=== PATIENT | male | born 1980 | race Caucasian/White ===

== ENCOUNTER 2018-07-12 18:44 | Emergency (ER) | payer MEDICAID ==
[~2018-07-12] VITALS: Ht 170.2 cm; Wt 97.5 kg
[2018-07-12 18:44] VITALS: BP 163/113
--- NOTE | 2018-07-12 18:45 | NUR ---
Patient BIBA ACLS accompanied by [place] [employer], transferred to bed 5. RN evaluating patient at bedside.
--- NOTE | 2018-07-12 19:45 | NUR ---
RECEIVED REPORT FROM MEGHA ESPAÑA.
--- NOTE | 2018-07-12 19:45 | NUR ---
BIBA c/o chest pain after being arresting for stealing, pt in custody of [place] [employer], needs pre-book hx DM, meth abuse, IV heroin abuse PT HANDCUFFED TO RIGHT BED RAIL X 1. PT SLEEPING. TELLY MONITOR ON, IN PLACE. HOB ELEVATED. BED IN LOWEST POSITION. VSS. NO APPARENT STRESS AT THIS TIME.
--- NOTE | 2018-07-12 20:20 | NUR ---
EMT DOING EKG AT BEDSIDE.
--- NOTE | 2018-07-12 20:36 | NUR ---
Patient discharged with v/s stable. Written and verbal after care instructions given and explained. Patient verbalized understanding. Police escorted with steady gait. All questions addressed prior to discharge.
[2018-07-12 20:37] VITALS: BP 138/94
== END 2018-07-12 20:36 ==
LOC: MED 18:44
DX: R07.89 Other chest pain (principal); R06.02 Shortness of breath; J45.909 Unspecified asthma, uncomplicated; E11.9 Type 2 diabetes mellitus without complications; I10 Essential (primary) hypertension
CPT/HCPCS: 93005; 99283

== ENCOUNTER 2019-11-30 03:00 | Emergency (ER) | payer MEDICAID ==
[~2019-11-30] VITALS: Ht 170.2 cm; Wt 106.1 kg
[2019-11-30 03:05] VITALS: BP 136/91
--- NOTE | 2019-11-30 03:05 | NUR ---
PT AMBULATED TO BED #11
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
--- NOTE | 2019-11-30 03:24 | NUR ---
Dr. Godfrey examining patient.
[2019-11-30] MEDS ORDERED: AZITHROMYCIN 250 MG TAB PO ONE (03:30)
[2019-11-30] MEDS ORDERED: cefTRIAXone 250 MG in LIDOCAINE MPF 1% 0.9 ML IM ONE (03:30)
[2019-11-30] MEDS ORDERED: cefTRIAXone 250 MG VIAL ONE (03:34)
[2019-11-30] MEDS ORDERED: LIDOCAINE MPF 1% 5 ML ONE (03:35)
[2019-11-30 03:54] VITALS: BP 136/91
[2019-12-02 06:08] LABS: CHLAMYDIA TRACHOMATIS AMP DNA Negative (Negative)
== END 2019-11-30 03:54 | disposition home or self-care (01) ==
LOC: MED 03:00
DX: R30.0 Dysuria (principal); E11.9 Type 2 diabetes mellitus without complications; F17.210 Nicotine dependence, cigarettes, uncomplicated; I10 Essential (primary) hypertension; J45.909 Unspecified asthma, uncomplicated
CPT/HCPCS: 36415; 81002; 96372; 99283; J0696; J2001; 87491

== ENCOUNTER 2019-12-19 16:44 | Emergency (ER) | payer MEDICAID ==
[~2019-12-19] VITALS: Ht 170.2 cm; Wt 117.9 kg
[2019-12-19 16:53] VITALS: BP 141/78
[2019-12-19] MEDS: TETRACAINE HCL/PF 0.5% OPTH 4 ML BTL OP ONE (17:16)
[2019-12-19] MEDS: FLUORESCEIN OPTH STRIP 1 MG OP ONE (17:16)
[2019-12-19] MEDS ORDERED: TOMOMETER 1 DEV DEV MC ONE (17:19)
[2019-12-19 17:47] VITALS: BP 135/70
== END 2019-12-19 17:47 | disposition home or self-care (01) ==
LOC: MED 16:44
DX: S05.02XA Injury of conjunctiva and corneal abrasion without foreign body, left eye, initial encounter (principal); E11.9 Type 2 diabetes mellitus without complications; I10 Essential (primary) hypertension; J45.909 Unspecified asthma, uncomplicated; X58.XXXA Exposure to other specified factors, initial encounter; Y93.89 Activity, other specified; Y92.89 Other specified places as the place of occurrence of the external cause; Y99.8 Other external cause status
CPT/HCPCS: 99283

== ENCOUNTER 2020-10-08 03:33 | Emergency (ER) | payer MEDICAID ==
[~2020-10-08] VITALS: Ht 170.2 cm; Wt 117.5 kg
[2020-10-08 03:36] VITALS: BP 152/95
--- NOTE | 2020-10-08 03:36 | NUR ---
TO BED AMBULATORY
--- NOTE | 2020-10-08 03:51 | NUR ---
39 y.o male presents to the ED with High Blood sugar of 381 and high blood pressure. Patient reports not taking medication for 1 month and that is when his high BG has been kicking in. it is normally 400s. Patient reports frequent urination and possible yeast infection of the penis due to painful when the foreskin is pulled back. Reports FORTUNE, LUQ abdominal pain and Left shoulder pain that has been going on for a few days. 6/10 pain that feels like cramping. Has neuropathy. Homeless. PMH: DM, HTN, neuropathy, sleep apnea NKA
--- NOTE | 2020-10-08 04:01 | NUR ---
ERMD AT BEDSIDE FOR EXAMINATION OF THE PATIENT
[2020-10-08] MEDS ORDERED: NACL 0.9% 2,000 ML IV ONE (04:10)
[2020-10-08 04:56] LABS: BASOPHILS % (AUTO) 0.4 % (0.0-2.0); EOSINOPHILS # (AUTO) 0.2 K/uL (0-0.4); EOSINOPHILS % (AUTO) 2.9 % (0.0-4.0); HEMATOCRIT 44.6 % (36-52); HEMOGLOBIN 14.9 g/dL (12.0-18.0); LYMPHOCYTES # (AUTO) 2.5 K/uL (2.0-11.5); LYMPHOCYTES % (AUTO) 29.2 % (20.5-51.1); MEAN CORPUSCULAR HEMOGLOBIN 29 pg (27-31); MEAN CORPUSCULAR HGB CONC 34 g/dL (33-37); MONOCYTES # (AUTO) 0.6 K/uL (0.8-1.0); MONOCYTES % (AUTO) 7.4 % (1.7-9.3); NEUTROPHILS # (AUTO) 5.1 K/uL (1.8-7.7); NEUTROPHILS % (AUTO) 60.1 % (42.2-75.2); PLATELET COUNT (AUTO) 177 K/uL (140-450); RED BLOOD CELL COUNT(AUTO) 5.24 MIL/uL (4.20-6.10); RED CELL DISTRIBUTION WIDTH 12.9 % (11.6-13.7); WHITE BLOOD COUNT (AUTO) 8.5 K/uL (4.8-10.8)
[2020-10-08 05:10] LABS: ANION GAP 16.1 (8-16); CARBON DIOXIDE 28.2 mmol/L (21-32); CREATININE 0.9 mg/dL (0.6-1.3); POTASSIUM 4.3 mmol/L (3.5-5.1)
--- NOTE | 2020-10-08 05:22 | NUR ---
Patient appears to be resting comfortably in bed low fowlers. Respirations even and unlabored with a slight snore. Significant other at bedside. Safety measures in place. Will continue to monitor patient.
[2020-10-08 06:36] LABS: ALBUMIN 3.9 g/dL (3.4-5.0); BILIRUBIN,DIRECT 0.1 mg/dL (0.0-0.3); MAGNESIUM 1.9 mg/dL (1.8-2.4); TOTAL BILIRUBIN 0.3 mg/dL (0.0-1.0)
--- NOTE | 2020-10-08 06:47 | NUR ---
Patient appears to be resting comfortably in bed low fowlers. Vital signs within normal limits. Respirations even and unlabored with a slight snore. Safety measures in place. Will continue to monitor patient.
--- NOTE | 2020-10-08 06:48 | NUR ---
ERMD AT BEDSIDE FOR RE-EXAMINATION OF PATIENT AND SPEAKING ABOUT RESULTS.
--- NOTE | 2020-10-08 06:48 | NUR ---
Called for update on patient. Call for future updates. : Arleen #[phone]
[2020-10-08 06:53] LABS: ANION GAP 11.2 (8-16); CARBON DIOXIDE 25.7 mmol/L (21-32); CREATININE 0.8 mg/dL (0.6-1.3); POTASSIUM 3.9 mmol/L (3.5-5.1)
[2020-10-08] MEDS ORDERED: METF-1022 PO (06:56)
[2020-10-08] MEDS ORDERED: LISI10TA30 PO (06:56)
[2020-10-08] MEDS ORDERED: GLYB5TAB13 PO (06:57)
--- NOTE | 2020-10-08 07:00 | NUR ---
IV removed, catheter intact and site benign. Applied folded 4x4 gauze and tape to stop bleeding.
[2020-10-08 07:07] VITALS: BP 119/73
--- NOTE | 2020-10-08 07:07 | NUR ---
Patient discharged with v/s stable. Written and verbal after care instructions given and explained. Patient alert, oriented and verbalized understanding of instructions. Ambulatory with steady gait. All questions addressed prior to discharge. ID band removed. Patient advised to follow up with PMD. Rx of GLYBURIDE, LISINOPRIL, METFORMIN HCL given. Patient educated on indication of medication including possible reaction and side effects. Opportunity to ask questions provided and answered.
== END 2020-10-08 07:07 | disposition home or self-care (01) ==
LOC: MED 03:33
DX: E11.65 Type 2 diabetes mellitus with hyperglycemia (principal); I10 Essential (primary) hypertension; F15.90 Other stimulant use, unspecified, uncomplicated; F17.200 Nicotine dependence, unspecified, uncomplicated; J45.909 Unspecified asthma, uncomplicated; Z71.6 Tobacco abuse counseling; Z59.0 Homelessness; Z79.84 Long term (current) use of oral hypoglycemic drugs; Z79.899 Other long term (current) drug therapy
CPT/HCPCS: 36415; 80048; 80076; 81002; 82803; 83735; 84484; 85025; 96360; 99291; J7030

== ENCOUNTER 2020-10-31 01:10 | Emergency (ER) | payer MEDICAID ==
[~2020-10-31] VITALS: Ht 170.2 cm; Wt 104.3 kg
[~2020-10-31 01:10] MED LIST: GLYB5TAB13 PO; LISI10TA30 PO; METF-1022 PO
[2020-10-31 01:24] VITALS: BP 170/100
--- NOTE | 2020-10-31 01:24 | NUR ---
PATIENT AMBUALTED TO BED 8 WITH STEADY GAIT.
--- NOTE | 2020-10-31 01:33 | NUR ---
ERMD AT BEDSIDE FOR MEDICAL EVALUATION.
--- NOTE | 2020-10-31 01:39 | NUR ---
PATIENT BIB SELF FOR C/O HEADACHE X 1 WEEK. PER PATINET HEADACHE IS INTERMITTENT AND STARTS IN BACK OF HEAD AND RADIATES TO LEFT CHEEK, L EYE, AND LEFT TEETH AND HAS FELT THAT IT HAS GOTTEN WORSE. PATIENT STATES TOOK ASA FOR PAIN THIS MORNING WITH INEFFECTIVE RESULTS. 7/10 PAIN THAT FEELS LIKE THROBBING, PULSATION AND CONSTANTLY THERE. AAOX4. MEDHX: DM TYPE II, HTN, SLEEP APNEA, ASTHMA NKA
[2020-10-31] MEDS ORDERED: ACETAMINOPHEN EXTRA STRENGTH 500 MG TAB PO ONE (01:40)
[2020-10-31] MEDS ORDERED: diphenhydrAMINE 50 MG/ML VIAL IVP ONE (01:40)
[2020-10-31] MEDS ORDERED: PROCHLORPERAZINE 10 MG/2 ML VIAL IVP ONE (01:40)
[2020-10-31 02:26] LABS: ALBUMIN 4.1 g/dL (3.4-5.0); ANION GAP 11.2 (8-16); CREATININE 0.9 mg/dL (0.6-1.3); POTASSIUM 4.2 mmol/L (3.5-5.1); TOTAL BILIRUBIN 0.2 mg/dL (0.0-1.0)
--- NOTE | 2020-10-31 03:15 | NUR ---
called about updates on patient. mentioned, the needle stick and the blood sugar to relay to the doctor or see if we could do anything about it. ERMD made aware.
--- NOTE | 2020-10-31 03:16 | NUR ---
Patient appears to be resting comfortably in bed. Vital Signs within normal limits. Respirations even and unlabored. Safety measures in place, will continue to monitor
[2020-10-31 03:37] LABS: BASOPHILS % (AUTO) 0.3 % (0.0-2.0); EOSINOPHILS # (AUTO) 0.4 K/uL (0-0.4); EOSINOPHILS % (AUTO) 3.7 % (0.0-4.0); HEMATOCRIT 43.2 % (36-52); HEMOGLOBIN 14.4 g/dL (12.0-18.0); LYMPHOCYTES # (AUTO) 2.5 K/uL (2.0-11.5); LYMPHOCYTES % (AUTO) 25.3 % (20.5-51.1); MEAN CORPUSCULAR HEMOGLOBIN 29 pg (27-31); MEAN CORPUSCULAR HGB CONC 33 g/dL (33-37); MEAN CORPUSCULAR VOLUME 85.6 fL (80-94); MONOCYTES # (AUTO) 0.8 K/uL (0.8-1.0); MONOCYTES % (AUTO) 8.3 % (1.7-9.3); NEUTROPHILS # (AUTO) 6.2 K/uL (1.8-7.7); NEUTROPHILS % (AUTO) 62.4 % (42.2-75.2); PLATELET COUNT (AUTO) 201 K/uL (140-450); RED BLOOD CELL COUNT(AUTO) 5.05 MIL/uL (4.20-6.10); RED CELL DISTRIBUTION WIDTH 13.3 % (11.6-13.7)
--- NOTE | 2020-10-31 04:12 | NUR ---
Patient appears to be resting comfortably in bed. Vital Signs within normal limits. Respirations even and unlabored. Safety measures in place, will continue to monitor
--- NOTE | 2020-10-31 04:25 | NUR ---
Dr. Raza examining patient.
[2020-10-31] MEDS ORDERED: HEPATITIS B VACCINE PEDIATRIC 10 MCG/0.5 ML VIAL IMVAC ONE (04:40)
[2020-10-31] MEDS ORDERED: RALT400T PO (04:40)
[2020-10-31] MEDS ORDERED: HEPATITIS B IMMUNE GLOBULIN 0.5 ML SYR IM ONE (04:40)
[2020-10-31] MEDS ORDERED: TRU PO (04:40)
--- NOTE | 2020-10-31 05:15 | NUR ---
IV removed, catheter intact and site benign. Applied folded 4x4 gauze and tape to stop bleeding.
[2020-10-31 05:24] VITALS: BP 107/64
--- NOTE | 2020-10-31 05:24 | NUR ---
Patient discharged with v/s stable. Written and verbal after care instructions given and explained. Patient alert, oriented and verbalized understanding of instructions. Ambulatory with steady gait. All questions addressed prior to discharge. ID band removed. Patient advised to follow up with PMD. Rx of ISENTRESS AND TRUVADA 200MG-300MG TABLET given. Patient educated on indication of medication including possible reaction and side effects. Opportunity to ask questions provided and answered.
== END 2020-10-31 03:15 | disposition home or self-care (01) ==
LOC: MED 01:10
DX: R51.9 Headache, unspecified (principal); F12.10 Cannabis abuse, uncomplicated; W46.1XXA Contact with contaminated hypodermic needle, initial encounter; Y93.89 Activity, other specified; Y92.89 Other specified places as the place of occurrence of the external cause; Y99.8 Other external cause status
CPT/HCPCS: 36415; 70450; 80053; 85025; 86703; 90371; 90471; 90744; 96372; 96374; 96375; 99285; J0780; J1200

== ENCOUNTER 2021-04-15 13:32 | Emergency (ER) | payer MEDICAID ==
[~2021-04-15] VITALS: Ht 170.2 cm; Wt 108.4 kg
[~2021-04-15 13:32] MED LIST changes: +RALT400T PO; +TRU PO
[2021-04-15 13:47] VITALS: BP 151/99
[2021-04-15] MEDS ORDERED: buprenorphine HCL 2 MG sublingual tab SL ONE (14:30)
[2021-04-15] MEDS ORDERED: LISI-486 PO (14:32)
[2021-04-15] MEDS ORDERED: METF-1022 PO (14:32)
[2021-04-15] MEDS ORDERED: NAPR-54 PO (14:32)
[2021-04-15] MEDS ORDERED: GLYB-200 PO (14:32)
[2021-04-15] MEDS ORDERED: CEPH-588 PO (14:32)
[2021-04-15] MEDS ORDERED: KETOROLAC 30 MG/ML VIAL IM ONE (14:35)
[2021-04-15] MEDS ORDERED: BUPR1FIL2 SL (14:41)
--- NOTE | 2021-04-15 15:10 | NUR ---
40/M BIB SELF FOR C/O INGROWN TOENAIL TO LEFT BIG TOE, BIG TOE IS TENDER TO TOUCH NO BLEEDING OR BROKEN SKIN NOTED TO SITE. PATIENT ALSO STATES HE WAS RELEASED FROM [facility] UNEXPECTEDLY 2 DAYS AGO AND STATES HE WAS ON SUBOXONE FOR HEROIN WITHDRAWS. STATES HE NEEDS A REFILL ON HIS MEDICATIONS. REPORTS SOME BODY AND LEG PAIN S/P STOPPING SUBOXONE. DENIES CP, SOB OR FEVERS.
[2021-04-15 15:40] VITALS: BP 151/99
--- NOTE | 2021-04-15 15:40 | NUR ---
Patient discharged with v/s stable. Written and verbal after care instructions ABOUT INGROWN TOENAIL, HYPERTENSION AND DM given and explained. Patient alert, oriented and verbalized understanding of instructions. Ambulatory with steady gait. All questions addressed prior to discharge. ID band removed. Patient advised to follow up with PMD. Rx of SUBOXONE 8MG, KEFLEX, MICRONASE, METFORMIN AND NAPROSYN given. Patient educated on indication of medication including possible reaction and side effects. Opportunity to ask questions provided and answered.
== END 2021-04-15 15:40 | disposition home or self-care (01) ==
LOC: MED 13:32
DX: L60.0 Ingrowing nail (principal); J45.909 Unspecified asthma, uncomplicated; E11.9 Type 2 diabetes mellitus without complications; I10 Essential (primary) hypertension; Z79.899 Other long term (current) drug therapy
CPT/HCPCS: 96372; 99283; J1885

== ENCOUNTER 2021-04-27 17:18 | Emergency (ER) | payer MEDICAID ==
[~2021-04-27] VITALS: Ht 170.2 cm; Wt 112.9 kg
[~2021-04-27 17:18] MED LIST changes: +BUPR1FIL2 SL; +CEPH-588 PO; +GLYB-200 PO; +LISI-486 PO; +NAPR-54 PO
--- NOTE | 2021-04-27 17:38 | NUR ---
name called in lobby and outside, no answer
[2021-04-27 19:10] VITALS: BP 151/90
--- NOTE | 2021-04-27 19:13 | NUR ---
TO LOBBY A/W BED AMBULATORY
[2021-04-27] MEDS ORDERED: BACITRACIN OINT 500 UNITS/GM PKT TP ONE (19:45)
[2021-04-27] MEDS ORDERED: KETOROLAC 30 MG/ML VIAL IM ONE (19:45)
[2021-04-27] MEDS ORDERED: LIDOCAINE MPF 1% 10 MG/ML VIAL INJ ONE ×2 (19:45)
[2021-04-27] MEDS ORDERED: SULF-59 PO (20:07)
[2021-04-27] MEDS ORDERED: NAPR-54 PO (20:07)
[2021-04-27] MEDS ORDERED: BACI1PAC6 TP (20:07)
--- NOTE | 2021-04-27 20:26 | NUR ---
Patient discharged with v/s stable. Written and verbal after care instructions given and explained. Patient alert, oriented and verbalized understanding of instructions. Ambulatory with steady gait. All questions addressed prior to discharge. ID band removed. Patient advised to follow up with PMD. Rx of BACITRACIN, NAPROXEN AND BACTRIM SX TABLET given. Opportunity to ask questions provided and answered.
== END 2021-04-27 20:26 | disposition home or self-care (01) ==
LOC: MED 17:18
DX: L60.0 Ingrowing nail (principal); J45.909 Unspecified asthma, uncomplicated; E11.9 Type 2 diabetes mellitus without complications; I10 Essential (primary) hypertension; Z79.84 Long term (current) use of oral hypoglycemic drugs; Z79.899 Other long term (current) drug therapy
CPT/HCPCS: 11730; 96372; 99284; J1885; J2001

== ENCOUNTER 2021-05-18 15:41 | Emergency (ER) | payer MEDICAID ==
[~2021-05-18] VITALS: Ht 170.2 cm; Wt 113.4 kg
[~2021-05-18 15:41] MED LIST changes: +BACI1PAC6 TP; +SULF-59 PO
[2021-05-18 16:00] VITALS: BP 131/92
--- NOTE | 2021-05-18 16:09 | NUR ---
ALEJANDRA THOMASON EXAMINING PT
--- NOTE | 2021-05-18 16:27 | NUR ---
COLLECTED GARRETT ABRAHAM GAVE TO PHARMACIST APPRENTICE.
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
[2021-05-18] MEDS ORDERED: NAPR-54 PO (17:22)
[2021-05-18 17:53] VITALS: BP 131/92
== END 2021-05-18 17:53 | disposition home or self-care (01) ==
LOC: MED 15:41
DX: S20.20XA Contusion of thorax, unspecified, initial encounter (principal); Z20.822 Contact with and (suspected) exposure to COVID-19; J45.909 Unspecified asthma, uncomplicated; E11.9 Type 2 diabetes mellitus without complications; I10 Essential (primary) hypertension; F11.90 Opioid use, unspecified, uncomplicated; Z79.899 Other long term (current) drug therapy; Z79.84 Long term (current) use of oral hypoglycemic drugs; X58.XXXA Exposure to other specified factors, initial encounter; Y93.89 Activity, other specified; Y92.89 Other specified places as the place of occurrence of the external cause; Y99.8 Other external cause status
CPT/HCPCS: 71111; 93005; 99285; U0003

== ENCOUNTER 2021-08-05 20:14 | Emergency (ER) | payer OTHER, MEDICAID ==
[~2021-08-05] VITALS: Ht 170.2 cm; Wt 113.4 kg
[~2021-08-05 20:14] MED LIST changes: -METF-1022 PO; +METF-1253 PO
[2021-08-05 20:28] VITALS: BP 146/80
--- NOTE | 2021-08-05 20:34 | NUR ---
Patient ambulated to bed 2.
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
--- NOTE | 2021-08-05 21:12 | NUR ---
Dr. Guadarrama at bedside to exam patient.
[2021-08-05] MEDS ORDERED: BACITRACIN OINT 500 UNITS/GM PKT TP ONE ×2 (21:15→23:02)
--- NOTE | 2021-08-05 21:32 | NUR ---
Patient taken to Radiology Dept via wheel chair .
--- NOTE | 2021-08-05 21:59 | NUR ---
Dr. Guadarrama removed 3 small pieces of glass from left elbow .
[2021-08-05] MEDS ORDERED: HYDROcodone/APAP 5/325 MG 1 TAB TAB PO ONE (22:20)
[2021-08-05] MEDS ORDERED: LIDOCAINE JELLY 2% 30 ML TUBE TP ONE ×2 (22:20→22:21)
[2021-08-05] MEDS ORDERED: BACTO TP (22:23)
[2021-08-05] MEDS ORDERED: ACET-10509 PO (22:23)
[2021-08-05] MEDS ORDERED: IBUP-2213 PO (22:23)
[2021-08-05] MEDS ORDERED: AMOX1TAB8 PO (22:23)
[2021-08-05 23:10] VITALS: BP 136/78
--- NOTE | 2021-08-05 23:10 | NUR ---
Patient discharged with v/s stable. Written and verbal after care instructions given and explained. Patient alert, oriented and verbalized understanding of instructions. Ambulatory with steady gait. All questions addressed prior to discharge. ID band removed. Patient advised to follow up with PMD. Rx of Tylenol, Amoxicillin, Mupirocin and Ibuprofen given. Patient educated on indication of medication including possible reaction and side effects. Opportunity to ask questions provided and answered.
== END 2021-08-05 23:10 | disposition home or self-care (01) ==
LOC: MED 20:14
DX: S50.812A Abrasion of left forearm, initial encounter (principal); S50.852A Superficial foreign body of left forearm, initial encounter; S09.8XXA Other specified injuries of head, initial encounter; V49.9XXA Car occupant (driver) (passenger) injured in unspecified traffic accident, initial encounter; Y93.89 Activity, other specified; Y92.89 Other specified places as the place of occurrence of the external cause; Y99.8 Other external cause status
CPT/HCPCS: 70450; 72125; 73030; 73080; 99284

== ENCOUNTER 2022-02-11 00:53 | Emergency (ER) | payer MEDICAID ==
[~2022-02-11] VITALS: Ht 170.2 cm; Wt 110.2 kg
[~2022-02-11 00:53] MED LIST changes: +ACET-10509 PO; +AMOX1TAB8 PO; +BACTO TP; +IBUP-2213 PO
[2022-02-11 00:58] VITALS: BP 147/97
--- NOTE | 2022-02-11 01:07 | NUR ---
PT TO BED #5
--- NOTE | 2022-02-11 01:24 | NUR ---
#20g IV placed on left wrist using aseptic technique. 10cc flushed no infiltration noted. Saline lock.
[2022-02-11] MEDS ORDERED: NACL 0.9% 1,000 ML IV ONE (02:40)
[2022-02-11 02:57] LABS: APPEARANCE,URINE CLEAR (CLEAR); BILIRUBIN,URINE NEGATIVE (NEGATIVE); BLOOD, URINE NEGATIVE (NEGATIVE); COLOR,URINE YELLOW (YELLOW); LEUKOCYTE ESTERASE ,URINE NEGATIVE (NEGATIVE); NITRITE, URINE NEGATIVE (NEGATIVE); UGLUCOSE 3+ (NEGATIVE)
--- NOTE | 2022-02-11 02:57 | NUR ---
NS1L running bolus. Pt has no c/o.
[2022-02-11 03:15] LABS: CARBON DIOXIDE 26.7 mmol/L (21-32); CREATININE 0.9 mg/dL (0.6-1.3); POTASSIUM 3.7 mmol/L (3.5-5.1)
[2022-02-11] MEDS ORDERED: METF-1243 PO (03:22)
[2022-02-11] MEDS ORDERED: GLYB-200 PO (03:22)
[2022-02-11] MEDS ORDERED: LOTC TP (03:22)
--- NOTE | 2022-02-11 03:55 | NUR ---
Patient discharged with v/s stable. Written and verbal after care instructions given and explained. Patient verbalized understanding. Ambulatory with steady gait. All questions addressed prior to discharge. Advised to follow up with PMD.
[2022-02-11 03:56] VITALS: BP 124/89
== END 2022-02-11 03:55 | disposition home or self-care (01) ==
LOC: MED 00:53
DX: E11.65 Type 2 diabetes mellitus with hyperglycemia (principal); N48.1 Balanitis; J45.909 Unspecified asthma, uncomplicated; I10 Essential (primary) hypertension; F17.210 Nicotine dependence, cigarettes, uncomplicated; Z79.899 Other long term (current) drug therapy; Z79.84 Long term (current) use of oral hypoglycemic drugs
CPT/HCPCS: 36415; 80048; 81003; 82948; 96360; 99283

== ENCOUNTER 2022-04-29 14:11 | Emergency (ER) | payer MEDICAID ==
[~2022-04-29] VITALS: Ht 170.2 cm; Wt 109.3 kg
[~2022-04-29 14:11] MED LIST changes: +BACI-416 TP; -BACI1PAC6 TP; +LOTC TP; +METF-1243 PO
[2022-04-29 14:21] VITALS: BP 140/86
[2022-04-29 15:19] LABS: BASOPHILS # (AUTO) 0.1 K/uL (0.00-0.22); BASOPHILS % (AUTO) 0.5 % (0.0-2.0); EOSINOPHILS # (AUTO) 0.2 K/uL (0-0.4); EOSINOPHILS % (AUTO) 2.1 % (0.0-4.0); HEMATOCRIT 43.1 % (36-52); HEMOGLOBIN 15.2 g/dL (12.0-18.0); LYMPHOCYTES # (AUTO) 3.7 K/uL (2.0-11.5); LYMPHOCYTES % (AUTO) 35.5 % (20.5-51.1); MEAN CORPUSCULAR HEMOGLOBIN 29 pg (27-31); MEAN CORPUSCULAR HGB CONC 35 g/dL (33-37); MEAN CORPUSCULAR VOLUME 81.4 fL (80-94); MONOCYTES # (AUTO) 0.7 K/uL (0.8-1.0); MONOCYTES % (AUTO) 6.8 % (1.7-9.3); NEUTROPHILS # (AUTO) 5.7 K/uL (1.8-7.7); NEUTROPHILS % (AUTO) 55.1 % (42.2-75.2); PLATELET COUNT (AUTO) 186 K/uL (140-450); RED BLOOD CELL COUNT(AUTO) 5.29 MIL/uL (4.20-6.10); WHITE BLOOD COUNT (AUTO) 10.3 K/uL (4.8-10.8)
[2022-04-29 15:23] LABS: ANION GAP 13.7 (8-16); CARBON DIOXIDE 27.9 mmol/L (21-32); CREATININE 0.8 mg/dL (0.6-1.3); POTASSIUM 4.6 mmol/L (3.5-5.1)
[2022-04-29] MEDS ORDERED: METF-346 PO (15:58)
[2022-04-29] MEDS ORDERED: LISI10TA30 PO (15:58)
[2022-04-29] MEDS ORDERED: GLYB5TAB13 PO (15:58)
[2022-04-29] MEDS ORDERED: GABA100C PO (15:58)
[2022-04-29] MEDS ORDERED: CLIN300C2 PO (15:58)
[2022-04-29 16:51] VITALS: BP 145/96
== END 2022-04-29 16:51 | disposition home or self-care (01) ==
LOC: MED 14:11
DX: E11.65 Type 2 diabetes mellitus with hyperglycemia (principal); L03.311 Cellulitis of abdominal wall; Z76.0 Encounter for issue of repeat prescription; J45.909 Unspecified asthma, uncomplicated; I10 Essential (primary) hypertension; Z79.899 Other long term (current) drug therapy; Z79.2 Long term (current) use of antibiotics; Z79.1 Long term (current) use of non-steroidal anti-inflammatories (NSAID)
CPT/HCPCS: 36415; 80048; 82009; 82803; 85025; 99283

== ENCOUNTER 2022-10-24 23:02 | Emergency (ER) | payer MEDICAID ==
[~2022-10-24] VITALS: Ht 170.2 cm; Wt 113.4 kg
[~2022-10-24 23:02] MED LIST changes: -BACI-416 TP; +BACI-418 TP; +CLIN300C2 PO; +GABA100C PO; +METF-346 PO
[2022-10-24 23:20] VITALS: BP 136/93; PULSE 102; RESP 20; TEMP 98; O2SAT 98
--- NOTE | 2022-10-24 23:20 | NUR ---
PT WENT TO BED 12
[2022-10-25] VITALS: TEMP 98
--- NOTE | 2022-10-25 01:20 | NUR ---
pt w/c assisted to XR
[2022-10-25 01:23] LABS: APPEARANCE,URINE CLEAR (CLEAR); BILIRUBIN,URINE NEGATIVE (NEGATIVE); BLOOD, URINE NEGATIVE (NEGATIVE); COLOR,URINE YELLOW (YELLOW); LEUKOCYTE ESTERASE ,URINE NEGATIVE (NEGATIVE); NITRITE, URINE NEGATIVE (NEGATIVE); UGLUCOSE 3+ (NEGATIVE)
--- NOTE | 2022-10-25 01:23 | NUR ---
Patient is a 31/M who came in due toleft rib pain, 6/10, sharp, on movement and coughing. No chest pain or SOB noted. Patient also noted penile discharge, redness and associated pain on said area. No urniary symptoms noted. PMHx: HTN, DM NKA
--- NOTE | 2022-10-25 01:35 | NUR ---
PT RETURN FROM XRAY
[2022-10-25] MEDS ORDERED: CEPH-588 PO ×2 (02:24→03:16)
[2022-10-25] MEDS ORDERED: LOTC TP ×2 (02:24→03:16)
[2022-10-25] MEDS ORDERED: LISI10TA30 PO ×2 (02:24→03:16)
[2022-10-25] MEDS ORDERED: GABA100C PO ×2 (02:24→03:16)
[2022-10-25] MEDS ORDERED: BACI-418 TP ×2 (02:24→03:16)
[2022-10-25] MEDS ORDERED: GLYB5TAB13 PO ×2 (02:24→03:16)
[2022-10-25] MEDS ORDERED: METF-1253 PO ×2 (02:24→03:16)
--- NOTE | 2022-10-25 03:00 | NUR ---
Patient discharged with v/s stable. Written and verbal after care instructions given and explained. Patient alert, oriented and verbalized understanding of instructions. Ambulatory with steady gait. All questions addressed prior to discharge. ID band removed. Patient advised to follow up with PMD. Rx of Bacitracin, Keflex, Neurontin, Glyburide, Lisinopril, Lotrimin, Metformin given. Patient educated on indication of medication including possible reaction and side effects. Opportunity to ask questions provided and answered.
[2022-10-25 03:09] VITALS: BP 145/87; PULSE 90; RESP 18; O2SAT 97
[2022-10-25] MEDS ORDERED: BLOO1EAC9 MC (03:16)
== END 2022-10-25 03:00 | disposition home or self-care (01) ==
LOC: MED 23:02
DX: N48.1 Balanitis (principal); N48.89 Other specified disorders of penis; R07.89 Other chest pain; E11.65 Type 2 diabetes mellitus with hyperglycemia; I10 Essential (primary) hypertension; J45.909 Unspecified asthma, uncomplicated; Z79.4 Long term (current) use of insulin; Z79.899 Other long term (current) drug therapy
CPT/HCPCS: 71101; 81003; 99284

== ENCOUNTER 2022-12-07 04:45 | Emergency (ER) | payer MEDICAID ==
[~2022-12-07] VITALS: Ht 170.2 cm; Wt 98.9 kg
[~2022-12-07 04:45] MED LIST changes: +BLOO1EAC9 MC
[2022-12-07 05:00] VITALS: BP 129/80; PULSE 96; RESP 16; TEMP 96.6; O2SAT 98
[2022-12-07] MEDS ORDERED: ACET-10509 PO (06:25)
[2022-12-07] MEDS ORDERED: LISI-486 PO (06:25)
[2022-12-07] MEDS ORDERED: GLYB-200 PO (06:25)
[2022-12-07] MEDS ORDERED: FLUC150T PO (06:25)
[2022-12-07] MEDS ORDERED: CLON0.2T16 PO (06:25)
[2022-12-07] MEDS ORDERED: LOTC TP (06:25)
[2022-12-07] MEDS ORDERED: LANC1COM6 MC (06:25)
[2022-12-07] MEDS ORDERED: ONDA-188 PO (06:25)
[2022-12-07] MEDS ORDERED: METF-353 PO (06:25)
[2022-12-07 06:34] VITALS: BP 129/80; PULSE 96; RESP 16; TEMP 96.6; O2SAT 98
[2022-12-07] MEDS ORDERED: NALO4SPR NS (06:46)
== END 2022-12-07 06:34 | disposition home or self-care (01) ==
LOC: MED 04:45
DX: N48.1 Balanitis (principal); F11.90 Opioid use, unspecified, uncomplicated; E11.9 Type 2 diabetes mellitus without complications; I10 Essential (primary) hypertension; J45.909 Unspecified asthma, uncomplicated; Z79.4 Long term (current) use of insulin; Z79.899 Other long term (current) drug therapy
CPT/HCPCS: 99283

== ENCOUNTER 2023-05-04 22:27 | Emergency (ER) | payer MEDICAID, OTHER ==
[~2023-05-04] VITALS: Ht 170.2 cm; Wt 104.3 kg
[~2023-05-04 22:27] MED LIST changes: +CLON0.2T16 PO; +FLUC150T PO; +LANC1COM6 MC; +METF-353 PO; +NALO4SPR NS; +ONDA-188 PO
[2023-05-04 22:45] VITALS: BP 127/70; PULSE 98; RESP 19; TEMP 97.9; O2SAT 96
[2023-05-05 01:02] LABS: APPEARANCE,URINE CLEAR (CLEAR); BILIRUBIN,URINE NEGATIVE (NEGATIVE); BLOOD, URINE NEGATIVE (NEGATIVE); COLOR,URINE YELLOW (YELLOW); LEUKOCYTE ESTERASE ,URINE NEGATIVE (NEGATIVE); NITRITE, URINE NEGATIVE (NEGATIVE); PROTEIN,URINE NEGATIVE (NEGATIVE); UGLUCOSE 3+ (NEGATIVE); UROBILINOGEN,URINE 0.2 EU/dL (0.2 - 1)
[2023-05-05] MEDS ORDERED: KETOROLAC 30 MG/ML VIAL IM ONE (01:55)
[2023-05-05 02:55] LABS: ANION GAP 11.3 (8-16); CALCIUM 8.8 mg/dL (8.5-10.1); CARBON DIOXIDE 30.6 mmol/L (21-32); CREATININE 0.9 mg/dL (0.6-1.3); POTASSIUM 3.9 mmol/L (3.5-5.1)
[2023-05-05] MEDS ORDERED: NIRM1TAB PO (03:26)
[2023-05-05] MEDS ORDERED: NAPR-54 PO (03:26)
[2023-05-05 03:38] VITALS: BP 148/88; PULSE 98; RESP 19; TEMP 97.9; O2SAT 97
== END 2023-05-05 03:40 | disposition home or self-care (01) ==
LOC: MED 22:27
DX: U07.1 COVID-19 (principal); J45.909 Unspecified asthma, uncomplicated; I10 Essential (primary) hypertension; E11.9 Type 2 diabetes mellitus without complications; Z79.4 Long term (current) use of insulin; Z79.899 Other long term (current) drug therapy
CPT/HCPCS: 36415; 80048; 81003; 96372; 99283; J1885

== ENCOUNTER 2023-06-04 02:47 | Emergency (ER) | payer OTHER ==
[~2023-06-04] VITALS: Ht 170.2 cm; Wt 104.3 kg
[~2023-06-04 02:47] MED LIST changes: +NIRM1TAB PO
[2023-06-04 02:56] VITALS: BP 168/112; PULSE 115; RESP 20; TEMP 97.5; O2SAT 99
[2023-06-04] MEDS ORDERED: GLYB5TAB13 PO (03:14)
[2023-06-04] MEDS ORDERED: LANC-886 TP (03:14)
[2023-06-04] MEDS ORDERED: METF-346 PO (03:14)
[2023-06-04] MEDS ORDERED: LISI40TA12 PO (03:14)
[2023-06-04 03:39] LABS: BASOPHILS # (AUTO) 0.1 K/uL (0.00-0.22); BASOPHILS % (AUTO) 0.6 % (0.0-2.0); EOSINOPHILS # (AUTO) 0.1 K/uL (0-0.4); EOSINOPHILS % (AUTO) 0.9 % (0.0-4.0); HEMATOCRIT 46.4 % (36-52); HEMOGLOBIN 15.7 g/dL (12.0-18.0); LYMPHOCYTES # (AUTO) 2.9 K/uL (2.0-11.5); MEAN CORPUSCULAR HEMOGLOBIN 29 pg (27-31); MEAN CORPUSCULAR HGB CONC 34 g/dL (33-37); MEAN CORPUSCULAR VOLUME 84.4 fL (80-94); MONOCYTES % (AUTO) 8.1 % (1.7-9.3); NEUTROPHILS # (AUTO) 7.9 K/uL (1.8-7.7); NEUTROPHILS % (AUTO) 66.4 % (42.2-75.2); PLATELET COUNT (AUTO) 209 K/uL (140-450); RED BLOOD CELL COUNT(AUTO) 5.49 MIL/uL (4.20-6.10); RED CELL DISTRIBUTION WIDTH 12.8 % (11.6-13.7); WHITE BLOOD COUNT (AUTO) 11.9 K/uL (4.8-10.8)
[2023-06-04 03:50] LABS: ANION GAP 15.1 (8-16); CALCIUM 9.3 mg/dL (8.5-10.1); CARBON DIOXIDE 28.4 mmol/L (21-32); CREATININE 0.9 mg/dL (0.6-1.3); POTASSIUM 4.5 mmol/L (3.5-5.1)
[2023-06-04] MEDS: INSULIN REGULAR, HUMAN 100 UNIT/ML VIAL SUBQ ONE (04:25)
[2023-06-04 05:03] VITALS: BP 145/65; PULSE 80; RESP 18; TEMP 98.3; O2SAT 97
== END 2023-06-04 04:50 | disposition home or self-care (01) ==
LOC: MED 02:47
DX: E11.65 Type 2 diabetes mellitus with hyperglycemia (principal); Z76.0 Encounter for issue of repeat prescription; J45.909 Unspecified asthma, uncomplicated; E78.5 Hyperlipidemia, unspecified; I10 Essential (primary) hypertension; Z79.899 Other long term (current) drug therapy
CPT/HCPCS: 36415; 80048; 85025; 96372; 99283; J1815